=== PATIENT | female | born 2000 | race African-American/Black ===

== ENCOUNTER 2024-05-20 06:25 | Outpatient (REF) | payer OTHER, SELFPAY ==
--- NOTE | ~2024-05-20 | US_ITS ---
EXAMINATION: US ABDOMEN COMPLETE CLINICAL INFORMATION: Right upper quadrant pain. COMPARISON: None available. TECHNIQUE: Real-time imaging of the abdominal viscera. FINDINGS: PANCREAS: Normal. ABDOMINAL AORTA: The proximal, mid, and distal segments are normal in caliber. INFERIOR VENA CAVA: Visualized portions are normal. LIVER: Enlarged measures 19 cm. The liver contour is normal. Parenchymal echogenicity is normal. No focal hepatic lesion. There is no intrahepatic biliary duct dilatation seen. GALLBLADDER: Normal. The gallbladder is physiologically distended without evidence of stones, sludge, polyps, wall thickening or pericholecystic fluid. COMMON BILE DUCT: Normal in caliber measuring 0.3 cm in diameter. RIGHT KIDNEY: Normal. No hydronephrosis. No renal calculi or focal parenchymal lesions. The kidney measures 10.3 cm in maximum dimension. LEFT KIDNEY: Normal. No hydronephrosis. No renal calculi or focal parenchymal lesions. The kidney measures 9.7 cm in maximum dimension. SPLEEN: Normal. The spleen measures 7.5 cm in maximum dimension. FREE FLUID: None. US/US abdomen complete IMPRESSION: 1. Hepatomegaly. 2. Otherwise unremarkable study. Electronically signed by: Bar Wagner MD 05/20/2024 11:51 AM EDT
== END 2024-05-20 06:26 | disposition home or self-care (01) ==
LOC: HO.UMASIMG 06:25
PROVIDERS: Visit Provider Family Medicine
DX: R10.9 Unspecified abdominal pain (principal)
CPT/HCPCS: 76700

== ENCOUNTER 2024-06-24 06:31 | Outpatient (REF) | payer OTHER, SELFPAY ==
--- NOTE | ~2024-06-24 | US_ITS ---
EXAMINATION: US PELVIS CLINICAL INFORMATION: Right lower quadrant pain. LMP approximately 3 weeks prior. COMPARISON: None available. TECHNIQUE: Ultrasound of the pelvis is performed using both transabdominal and transvaginal transducers along with Doppler. Transvaginal imaging is performed due to inadequate visualization transabdominally. FINDINGS: Anteverted uterus with arcuate morphology measuring 9.6 x 5.3 x 5.5 cm. Subjective heterogeneity and thickening of the myometrium/junctional zone. Homogeneous endometrium measuring up to 0.6 cm in thickness. Normal ovarian morphology. The right ovary measures 2.1 x 1.4 x 1.1 cm (2 mL) and the left ovary measures 2 x 2 0.7 x 2.4 cm (7 mL). No adnexal mass. Small amount of simple appearing fluid in the cul-de-sac and adjacent to the right ovary. US/US pelvic and transvaginal IMPRESSION: 1. Subjective heterogeneity and thickening of the myometrium/junctional zone which could be seen with adenomyosis in the appropriate clinical context. 2. 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 3. Small amount of simple appearing free fluid in the cul-de-sac and adjacent to the right ovary, likely physiologic. Electronically signed by: Maritza Salinas MD 06/24/2024 04:08 PM [email or web address]
== END 2024-06-24 06:32 | disposition home or self-care (01) ==
LOC: HO.UMASIMG 06:31
PROVIDERS: Visit Provider Family Medicine
DX: R10.2 Pelvic and perineal pain (principal)
CPT/HCPCS: 76830; 76856